=== PATIENT | female | born 1945 | race Two or more races ===

== ENCOUNTER 2016-07-17 07:55 | Day surgery (SDC) | payer MEDICARE, OTHER ==
[~2016-07-17] VITALS: Ht 152.4 cm; Wt 80.6 kg
[2016-07-17] MEDS ORDERED: JANUVIA (08:37)
[2016-07-17] MEDS ORDERED: LOSARTAN (08:37)
[2016-07-17] MEDS ORDERED: PEPCID (08:37)
[2016-07-17] MEDS ORDERED: LEVOTHYROXINE (08:37)
[2016-07-17] MEDS ORDERED: CARVEDILOL (08:37)
[2016-07-17] MEDS ORDERED: METFORMIN (08:37)
[2016-07-17] MEDS ORDERED: SIMVASTATIN (08:37)
[2016-07-17] MEDS ORDERED: AMLODIPINE (08:37)
[2016-07-17] MEDS ORDERED: LANTUS (08:37)
[2016-07-17] MEDS ORDERED: BENAZEPRIL (08:37)
[2016-07-17 08:41] VITALS: Ht 152.4 cm; Wt 80.6 kg
[2016-07-17 09:34] VITALS: BP 142/64; PULSE 71; RESP 18
[2016-07-17] MEDS ORDERED: PROPOFOL 40 ML ONE (10:00)
[2016-07-17 11:32] VITALS: BP 124/57; PULSE 66; RESP 18
--- NOTE | 2016-07-18 07:58 | GILP ---
DATE OF PROCEDURE: 07/17/2016 NAME OF PROCEDURES: Colonoscopy and biopsy. SURGEON: Katherine Onofre MD PREOPERATIVE DIAGNOSIS: Change in bowel habit. POSTOPERATIVE DIAGNOSES 1. Colonoscopy all the way to the cecum. 2. Small sigmoid polyp was removed using the biopsy forceps. 3. Internal hemorrhoids. INDICATION FOR THE PROCEDURE: Ms. Mary Brambila is a 71-year-old female patient who notice d a change in the bowel habit. The patient was scheduled for colonoscopy for further evaluation. The procedure and possible complications were well explained to the patient. She understood and con sented to the procedure. DESCRIPTION OF PROCEDURE: Under the influence of anesthesia, the colonoscope was carefully introduc ed in the rectum and under direct vision, it was advanced all the way to the cecum. FINDINGS: The patient had a small sigmoid polyp and it was removed using the biopsy forceps. She h ad internal hemorrhoids. She tolerated the procedure very well and there was no complication from the procedure. At the end of the procedures, she was awake with stable vital signs and she was discharged home to the care of her family. IMPRESSION: 1. Colonoscopy all the way to the cecum. 2. Small sigmoid colon polyp was removed using the biopsy forceps. 3. Internal hemorrhoids. PLAN: The patient does not need another screening colonoscopy. Dictated By: KATHERINE DE LA O/LAVONNE Conf#: [id number] DID#: [id number]
== END 2016-07-17 11:59 | disposition home or self-care (01) ==
LOC: GIL 07:55
PROVIDERS: ATTEND Internal Medicine Gastroenterology
DX: R19.4 Change in bowel habit (principal); D12.5 Benign neoplasm of sigmoid colon; K64.8 Other hemorrhoids; E03.9 Hypothyroidism, unspecified; I10 Essential (primary) hypertension; E78.5 Hyperlipidemia, unspecified
CPT/HCPCS: 88305